=== PATIENT | male | born 1945 | race Caucasian/White ===

== ENCOUNTER 2017-03-10 07:18 | Day surgery (SDC) | payer MEDICARE, SELFPAY ==
[2017-03-07 13:53] VITALS: BP 142/79; PULSE 99; RESP 18; TEMP 36.3; O2SAT 96
[2017-03-07 13:56] VITALS: BMI 26.7
[2017-03-10] VITALS (12 sets, daily range): BP systolic 106–160; BP diastolic 67–90; PULSE 69–99; RESP 12–20; TEMP 36.6; O2SAT 94–99
--- NOTE | 2017-03-10 08:34 | P.PCN_ITS ---
- Procedure: Date: 03/10/17 Patient Date of :: 1945 Procedure Performed:: Colonoscopy with cold snare polypectomy Equipment: Olympus 180 variable stiffness pediatric colonoscope Indications:: Mr. Benavidez is a 71-year-old gentleman who is here for follow-up screening/ surveillance colonoscopy. The patient's brother had colon cancer in his early 60s and of advanced disease at the age of 62. The patient did have a colonoscopy in January 2015 at which time 6 colon polyps (tubular adenomas ?6) were removed. The patient rate no abdominal pain, weight loss, change in his bowel habits or rectal bleeding. Performing Provider:: Terry Smith MD Referring Provider:: Moustapha Chopra M.D. Sedation:: Fentanyl 200 mg IV/ Versed 9 mg IV Procedure:: Prior to the procedure, a history and physical exam was performed, and patient' s medications and allergies were reviewed. The risks, benefits and alternatives of the sedation and procedure were discussed with the patient. All questions were answered and informed consent was obtained. The patient was brought to the procedure room. Patient identification and proposed procedure were verified by the physician and the nurse. The patient was placed in a left lateral decubitus position and the scope was passed under direct vision. Throughout the procedure, the patient's blood pressure, pulse, and oxygen saturations were monitored continuously. The colonoscopy was accomplished without difficulty. The patient tolerated the procedure well. Findings:: On digital rectal examination there was normal rectal tone. There were no external hemorrhoids. The prostate did have moderate firmness and asymmetry within the right lobe of the prostate. The colonoscope was introduced through the anal canal to the rectum and advanced to the cecum. The ileocecal valve and appendiceal orifice were identified. The scope was advanced a short distance into the ileum which appeared grossly normal. The scope was then withdrawn into the colon. There were 3 colon polyps identified in the descending ?2 and sigmoid ?1. These ranged in size from 3-6 mm and were all removed via cold snare polypectomy. There were scattered diverticuli throughout the descending and sigmoid colon (LEFT colon). The rectum itself was normal. Upon retroflexion within the rectum there were grade 1 internal hemorrhoids. Impression: 1. Diminutive colonic polyps ?3 2. Left-sided diverticulosis 3. Grade 1 internal hemorrhoids 4. Right lobe prostate firmness/asymmetry Recommendations:: Plan: I will follow up the polyp pathology and recommend repeat colonoscopy again in 5 years based upon the patient's family history and polyp histology. I would encourage fiber supplementation on a long-term daily maintenance basis. The patient did have a smaller nodule in January 2015 in the same region of the prostate in the right lobe. I do recommend that he see urology and I had referred him previously. I will discuss this with the patient and family. Complications:: None Estimated blood obtained (mL): 0
--- NOTE | 2017-03-10 10:06 | SUR.PHASEII ---
PSA SCREENING DRAWN BY CANDELARIO REGAN IN POSTOP AT 0920
[2017-03-10 12:18] LABS: Prostate Specific Ag Screen 8.1 ng/mL (0.0-4.0)
== END 2017-03-10 09:30 | disposition home or self-care (01) ==
LOC: OUTP 07:21
PROVIDERS: PCP Internal Medicine; Visit Provider Internal Medicine Gastroenterology
PROC: 0DJD8ZZ Inspection of Lower Intestinal Tract, Via Natural or Artificial Opening Endoscopic (ICD-10-PCS; CPT 45378; principal; 2017-03-10 08:30)
DX: Z12.11 Encounter for screening for malignant neoplasm of colon (principal); K57.30 Diverticulosis of large intestine without perforation or abscess without bleeding; K64.0 First degree hemorrhoids; Z12.5 Encounter for screening for malignant neoplasm of prostate; D12.4 Benign neoplasm of descending colon
CPT/HCPCS: 45380; 36415; 88305; 99152; 99153; G0103

== ENCOUNTER → 2019-11-07 10:40 | Outpatient (CLI) | payer MEDICARE, SELFPAY ==
[2019-11-07 14:56] LABS: Coronavirus 19 IgG Antibody Negative (Negative); Coronavirus 19 IgM Antibody Negative (Negative)
== END ==
PROVIDERS: Visit Provider Emergency Medicine
DX: Z01.818 Encounter for other preprocedural examination (principal); Z01.84 Encounter for antibody response examination
CPT/HCPCS: 36415; 86328

== ENCOUNTER 2020-01-22 17:46 | Emergency (ER) | payer MEDICARE, SELFPAY ==
--- NOTE | 2020-01-22 17:55 | XR_ITS ---
PROCEDURE: XR CHEST 2V CLINICAL HISTORY: SOB Shortness of breath, cough, fever COMPARISON: CR CXR1 CHEST-PORTABLE from 12/12/2015 FINDINGS: The cardiomediastinal silhouette and pulmonary vascularity are within normal limits. There is a right upper extremity PICC line present. The is in the region of proximal SVC. There is patchy areas of increased density in the right upper right lower and left upper lobe suggesting bilateral pneumonia. Minimal atelectasis is present in the CP angles on both sides. No acute bony findings. IMPRESSION: Subsegmental patchy areas of increased density in right upper right lower left upper lobe suggesting pneumonia and/or atelectatic change. Dictated by: Louis Fofana MD 01/23/2020 06:08 Louis Fofana MD in [place] 01/23/2020 06:08
[2020-01-22 17:58] VITALS: BP 102/69; PULSE 98; RESP 19; TEMP 38.3; O2SAT 97; BMI 26.5
[2020-01-22 18:26] LABS: UTC Influenza A Antigen Negative (Negative); UTC Influenza B Antigen Negative (Negative)
--- NOTE | 2020-01-22 18:42 | HMH.EDUTC ---
[facility] [place] Impression: Viral syndrome Acute bronchitis Qualifiers: Bronchitis organism: unspecified organism Qualified Code(s): J20.9 - Acute bronchitis, unspecified Disposition: Home, Self-Care Condition on Discharge: Good Instructions: DI for Viral Syndrome Additional Instructions: Drink plenty of fluids. Take tylenol for pain or fever. Return if you begin to have difficulty breathing. Follow up with your regular doctor. GO TO THE ER FOR ANY WORSENING SYMPTOMS Prescriptions: Benzonatate [Tessalon Perle 100mg Cap] 100 mg PO TIDP PRN #30 cap PRN Reason: Cough Transmission Status: Received by [id number] Azithromycin [Z-Yao 250mg Tab*] 250 mg PO UD DOSE PK #6 tab Transmission Status: Received by [id number] Referrals: Moustapha Chopra [Primary Care Provider] - Time of Disposition: 19:01 Medical Decision Making - Medical Records Medical records reviewed: No: I reviewed the patient's medical records. - Jamie Inquiry Pt receiving controlled substance: No Vital Signs: 01/22/20 17:58 01/22/20 19:15 Temperature 100.9 F H 98.9 F Temperature Source Oral Oral Pulse Rate 98 H Pulse Rate [Radial] 98 H Respiratory Rate 19 19 Blood Pressure 102/69 L Blood Pressure [Right Arm] 102/69 L Blood Pressure Mean [Right Arm] 80 Blood Pressure Source Automatic Cuff Blood Pressure Source [Right Arm] Automatic Cuff Blood Pressure Position Sitting Blood Pressure Position [Right Arm] Sitting 02 Sat by Pulse Oximetry 97 Oxygen Delivery Method Room Air Room Air - Lab Data Lab Results 01/22/20 18:01: Influenza Type A Ag Negative, Influenza Type B Ag Negative Orders (Tests/Meds): ORDERS Category Date Time Status XR chest 2V Stat Exams 01/22/20 17:55 Taken Covid-19 Nasal PCR ([facility]) Routine Lab 01/22/20 18:10 Received - Radiology Data #1 Image(s): Chest Image Reviewed: Yes I reviewed the patient's radiology image, Yes I reviewed the patient's radiology image w/the ED provider Preliminary Findings: No In[place]tr[place] [facility] [place] - General Stated complaint: SOB, Cough, Fever Time Seen by Provider: 01/22/20 18:15 Mode of Arrival: Wheelchair Source of Information: Patient Limitations: No Limitations Description of Symptoms (Recalled from Triage Doc. by RN): SOB, cough, fever HEENT Symptoms (Recalled from RN notes): Yes Resp Symptoms (Recalled from RN notes): Yes Skin Symptoms (Recalled from RN notes): No MS Symptoms (Recalled from RN notes): No Functional Status (Recalled from RN notes): wnl - History of Present Illness Provider Complaint: He states that he has been running a low grade fever since yesterday. He is currently undergoing chemo for pancreatic cancer. He also c/o a cough. He denies any possible exposure to covid-19. - Related Data Home Medications Medication Instructions Recorded Confirmed Flaxseed/Omega3,6,9/Fatty Acid 1 each PO DAILY 03/07/17 03/10/17 [Flax Seed Oil 1,300 mg Softgel] Glucosamine Sulfate Dipot Chlr 1,000 mg PO DAILY 03/07/17 03/10/17 [Glucosamine] Mv-Mins/Folic/Lycopene/Ginkgo [One 1 each PO DAILY 03/07/17 03/10/17 Daily For Men 50+ Adv Tab] Tamsulosin HCl [Flomax 0.4mg 0.4 mg PO DAILY 03/07/17 03/10/17 capsule] Previous Rx's Medication Instructions Recorded Azithromycin [Z-Yao 250mg Tab*] 250 mg PO UD DOSE PK #6 tab 01/22/20 Benzonatate [Tessalon Perle 100mg 100 mg PO TIDP PRN #30 cap 01/22/20 Cap] Allergies Allergy/AdvReac Type Severity Reaction Status Date / Time No Known Allergies Allergy Verified 03/10/17 07:44 - Worker's Comp Is this a Worker's Comp case?: No [facility] History - Hepatitis A Screen Drug use history?: No High risk sexual behaviors?: No History of sexually transmitted infection?: No Currently employed?: No Childcare worker?: No Do you have indoor plumbing?: Yes Do you have electricity?: Yes Attestation statement:: This patient
[2020-01-22 19:15] VITALS: BP 102/69; PULSE 98; RESP 19; TEMP 37.2; O2SAT 97
--- NOTE | 2020-01-23 14:54 | PC.NURSE ---
pt notified of covid test results
== END 2020-01-22 19:17 | disposition home or self-care (01) ==
PROVIDERS: Emergency Provider Nurse Practitioner Family; PCP Internal Medicine
DX: U07.1 COVID-19 (principal); C25.9 Malignant neoplasm of pancreas, unspecified; Z79.899 Other long term (current) drug therapy
CPT/HCPCS: G0463; 71046; 87804; 99202; U0003